=== PATIENT | female | born 1970 | race Caucasian/White ===

== ENCOUNTER → 2018-01-17 12:21 | Outpatient (CLI) | payer OTHER, SELFPAY ==
--- NOTE | 2018-01-17 12:28 | US_ITS ---
STUDY: ULTRASOUND OF THE FEMALE PELVIS - COMPLETE REASON FOR EXAM: Female, 47 years old. Ovarian cyst seen on MRI and outside facility in December. LMP: January 11, 2018. TECHNIQUE: TECHNICAL QUALITY: Adequate. COMPARISON: None. FINDINGS: The uterus is anteverted and is in a midline position. The uterus measures 7.8 x 4.9 x 4.7 cm. Normal uterine cervix. The endometrium measures mm in thickness, and is 2. The there is a 9 mm hyperechoic fibroid in the posterior aspect of the lower uterine segment. I.U.D. - The patient does not have an I.U.D. The right ovary is visualized. The right ovary measures 2.3 x 1.8 x 1.4 cm. There is no right ovarian cyst or ovarian mass. There is no visualized right adnexal mass or complex lesion. There is normal arterial and normal venous vascularity. The left ovary is visualized. The left ovary measures 2 x 2.4 x 0.8 cm. There is no left ovarian cyst or ovarian mass. There is no visualized left adnexal mass or complex lesion. There is normal arterial and normal venous vascularity. There is no fluid in the cul-de-sac. The pre void volume of the bladder was 303 ml. The urinary bladder is grossly unremarkable. Polycystic ovary disease: No. US/Pelvic (Non ) IMPRESSION: 1. Posterior uterine fibroid. 2. Normal ovaries. Electronically Signed: Eze Tiwari DO at 18:45 EDT Tel [phone], Service support ,
--- NOTE | 2018-01-17 12:43 | US_ITS ---
STUDY: ULTRASOUND OF THE FEMALE PELVIS - COMPLETE REASON FOR EXAM: Female, 47 years old. Ovarian cyst seen on MRI and outside facility in December. LMP: January 11, 2018. TECHNIQUE: TECHNICAL QUALITY: Adequate. COMPARISON: None. FINDINGS: The uterus is anteverted and is in a midline position. The uterus measures 7.8 x 4.9 x 4.7 cm. Normal uterine cervix. The endometrium measures mm in thickness, and is 2. The there is a 9 mm hyperechoic fibroid in the posterior aspect of the lower uterine segment. I.U.D. - The patient does not have an I.U.D. The right ovary is visualized. The right ovary measures 2.3 x 1.8 x 1.4 cm. There is no right ovarian cyst or ovarian mass. There is no visualized right adnexal mass or complex lesion. There is normal arterial and normal venous vascularity. The left ovary is visualized. The left ovary measures 2 x 2.4 x 0.8 cm. There is no left ovarian cyst or ovarian mass. There is no visualized left adnexal mass or complex lesion. There is normal arterial and normal venous vascularity. There is no fluid in the cul-de-sac. The pre void volume of the bladder was 303 ml. The urinary bladder is grossly unremarkable. Polycystic ovary disease: No. US/Transvaginal Non- IMPRESSION: 1. Posterior uterine fibroid. 2. Normal ovaries. Electronically Signed: Eze Tiwari DO at 18:45 EDT Tel [phone], Service support ,
== END ==
PROVIDERS: Visit Provider Obstetrics & Gynecology
DX: N83.201 Unspecified ovarian cyst, right side (principal)
CPT/HCPCS: 76830; 76856; 93976

== ENCOUNTER → 2019-02-07 13:40 | Outpatient (CLI) | payer OTHER, SELFPAY ==
[2019-02-13 11:03] LABS: HPV Reflexed? NOT INDICATED
== END ==
PROVIDERS: Visit Provider Obstetrics & Gynecology
DX: Z12.4 Encounter for screening for malignant neoplasm of cervix (principal)
CPT/HCPCS: 88175; G0145